=== PATIENT | male | born 1995 | race African-American/Black ===

== ENCOUNTER 2023-01-30 23:32 | Inpatient (IN) | payer BC ==
[2023-01-30] MEDS ORDERED: NALOXONE 0.4 MG/ML 1 ML VIAL IV PRN (23:46)
--- NOTE | 2023-01-30 23:46 | ED ---
General Adult HPI - General Chief complaint: Chest Pain Stated complaint: Stemi Time Seen by Provider: 01/30/23 23:36 Source: patient, EMS Mode of arrival: EMS Limitations: no limitations - History of Present Illness Initial comments: Dictation was produced using [employer] dictation software. please excuse any grammatical, word or spelling errors. Chief Complaint: 27-year-old male presents to the emergency department via transfer from [facility] for ST segment elevation MT History of Present Illness: 27-year-old male past medical history hypertension diabetes presents via EMS as a transfer from [facility] for ST segment elevation MT patient's been having chest pain. Patient has extensive family history. He's been having ongoing chest pain for last several hours. Patient states he has substernal pain. He allegedly has extensive family history of myocardial infarction The ROS documented in this emergency department record has been reviewed and confirmed by me. Those systems with pertinent positive or negative responses have been documented in the HPI. All other systems are other negative and/or noncontributory. - Related Data Allergies Allergy/AdvReac Type Severity Reaction Status Date / Time Unable to Assess Allergy Unverified 01/30/23 23:38 Review of Systems ROS Statement: Those systems with pertinent positive or pertinent negative responses have been documented in the HPI. ROS Other: All systems not noted in ROS Statement are negative. Past Medical History Past Medical History: Diabetes Mellitus Past Surgical History: No Surgical Hx Reported Smoking Status: Unknown if ever smoked Past Alcohol Use History: Unable to Obtain Past Drug Use History: Unable to Obtain General Exam - General Exam Comments Initial Comments: PHYSICAL EXAM: General Impression: Alert and oriented x3, not in acute distress HEENT: Normocephalic atraumatic, extra-ocular movements intact, pupils equal and reactive to light bilaterally, mucous membranes moist. Cardiovascular: Heart regular rate and rhythm Chest: Able to complete full sentences, no retractions, no tachypnea Abdomen: abdomen soft, non-tender, non-distended, no organomegaly Musculoskeletal: Pulses present and equal in all extremities, no peripheral edema Motor: no focal deficits noted Neurological: CN II-XII grossly intact, no focal motor or sensory deficits noted Skin: Intact with no visualized rashes Psych: Normal affect and mood Limitations: no limitations Medical Decision Making - Medical Decision Making Was pt. sent in by a medical professional or institution (, PA, WILLOW MACHINE TENDER, urgent care, hospital, or group home...) When possible be specific @ -No Did you speak to anyone other than the patient for history (EMS, parent, family, police, friend...)? What history was obtained from this source @ -Case discussed with Dr. Valdovinos at [facility] Did you review nursing and triage notes (agree or disagree)? Why? @ -I reviewed and agree with nursing and triage notes Were old charts reviewed (outside hosp., previous admission, EMS record, old EKG, old radiological studies, urgent care reports/EKG's, group home records)? Report findings @ -No old charts were reviewed Differential Diagnosis (chest pain, altered mental status, abdominal pain women, abdominal pain men, vaginal bleeding, musculoskeletal, weakness, fever, dyspnea, syncope, headache, dizziness, GI bleed, back pain, seizure, CVA, palpatations, mental health)? @ -Differential Chest Pain: Stable Angina, Unstable Angina, STEMI, NSTEMI Aortic Dissection, Pneumothorax, Musculoskeletal, Esophageal Spasm GERD, Cholecystitis, Pancreatitis, Zoster, this is not meant to be an all-inclusive list. EKG interpreted by me (3pts min.). @ -None done X-rays interpreted by me (1pt min.). @ -None done CT interpreted by me (1pt min.). @ -None done U/S interpreted by me (1pt. min.). @ -None done What testing was considered but not performed or refused? (CT, X-rays, U/S, labs)? Why? @ -None What meds were considered but not given or refused? Why? @ -None Did you discuss the management of the patient with other professionals (professionals i.e. , SHE, WILLOW MACHINE TENDER, lab, RT, psych nurse, high school social studies tutor, business intelligence analyst, teacher, ship officer, porter sample case)? Give summary @ -No Was smoking cessation discussed for >3mins.? @ -No Was critical care preformed (if so, how long)? @ -No Were there social determinants of health that impacted care today? How? (Homelessness, low income, unemployed, alcoholism, drug addiction, transportation, low edu. Level, literacy, decrease access to med. care, fdc, rehab)? @ -No Was there de-escalation of care discussed even if they declined (Discuss DNR or withdrawal of care, Hospice)? DNR status @ -No What co-morbidities impacted this encounter? (DM, HTN, Smoking, COPD, CAD, Cancer, CVA, ARF, Chemo, Hep., AIDS, mental health diagnosis, sleep apnea, morbid obesity)? @ -Diabetes, hypertension, extensive family history Was patient admitted / discharged? Hospital course, mention meds given and route, prescriptions, significant lab abnormalities, going to OR and other pertinent info. @ -27-year-old male presents via EMS for ST segment elevation MT. EKG was reviewed showing right bundle branch block with ST elevations. There were Q waves. Patient seen and found to be stable medical condition. Air Antisubmarine Officer was activated prior to patient's arrival. Case was discussed with railroad car repair supervisor who reviewed the EKG. Patient evaluated in ER and sent immediately to the Air Antisubmarine Officer for cardiac catheterization. Patient be admitted to [facility]. Undiagnosed new problem with uncertain prognosis? @ -No Drug Therapy requiring intensive monitoring for toxicity (Heparin, Nitro, Insulin, Cardizem)? @ -No Were any procedures done? @ -No Diagnosis/symptom? Acute, or Chronic, or Acute on Chronic? Uncomplicated (without systemic symptoms) or Complicated (systemic symptoms)? @ -STEMI Side effects of treatment? @ -No Exacerbation, Progression, or Severe Exacerbation? @ -No Poses a threat to life or bodily function? How? (Chest pain, USA, MT, pneumonia, PE, COPD, DKA, ARF, appy, cholecystitis, CVA, Diverticulitis, Homicidal, Suicidal, threat to staff... and all critical care pts) @ -yes Disposition Clinical Impression: ST elevation myocardial infarction (STEMI) Disposition: ADMITTED IP TO THIS HOSP Condition: Fair Referrals: None,Stated [Primary Care Provider] - 1-2 days Decision Time: 23:46
[2023-01-30] MEDS ORDERED: VERAPAMIL 2.5 MG/ML 2 ML AMP ONE (23:48)
[2023-01-30] MEDS ORDERED: HEPARIN SODIUM 1,000 UN/ML (10ML VL) ONE (23:48)
[2023-01-30] MEDS ORDERED: fentaNYL (PF) 50 MCG/ML 2 ML AMP ONE (23:48)
--- NOTE | 2023-01-30 23:53 | P.CRDCN ---
History of Present Illness Consult date: 01/30/23 History of present illness: History of Present Illness: The patient is a 27-year-old male was transferred from [facility] with an abnormal EKG consistent with STEMI. Patient has a history of diabetes, chronic tobacco use, marijuana use and a strong family history of premature CAD with prior episodes of hypertension, he has not been followed by a physician on a regular basis and presented with symptoms of chest discomfort that started yesterday and got better then worse again today. On the EKG at [facility] he had ST segment elevation anteriorly with right bundle branch block and QRS pattern. The patient denies any prior history of cardiac disease. He continues to have some chest discomfort. He has no significant dyspnea, dizziness or palpitations. He denies any PND, orthopnea or peripheral edema. Medications: Metformin Review of Systems: Respiratory: No history of asthma, bronchitis or recent cough. GI: No nausea or vomiting . No history of peptic ulcer disease. No recent GI bleed. : No hematuria or dysuria. Nervous System: No stroke or seizure. Physical Examination: 27-year-old male, alert and oriented no apparent distress ,Blood pressure 130/70, Heart rate 70 Head: Normocephalic. Eyes: Sclerae nonicteric. Neck: Good carotid upstroke, no bruit, no jugular venous distention. Lungs: Clear to auscultation. Heart: Regular rate and rhythm, S1-S2, no S3, no rub. No murmur. Abdomen: Soft nontender, positive bowel sounds no organomegaly. Extremities: No edema, intact distal pulses. Labs: Pending EKG: Sinus mechanism with evidence of anterior lateral wall myocardial infarction and QRS pattern anteriorly Impression: 1. Acute chest discomfort with EKG changes consistent with anterior wall myocardial infarction, pain started yesterday 2. History of diabetes 3. Strong family history of premature CAD 4. Chronic tobacco use 5. History of hypertension Plan: 1. Proceed with emergent cardiac catheterization, the risks and the complications were discussed with the patient 2. Obtain an echocardiogram with Doppler 3. Depending on his progress further recommendations will be made 4. Thank you for this consult we will follow with you Past Medical History Past Medical History: Diabetes Mellitus Past Surgical History: No Surgical Hx Reported Smoking Status: Unknown if ever smoked Past Alcohol Use History: Unable to Obtain Past Drug Use History: Unable to Obtain Medications and Allergies Allergies Allergy/AdvReac Type Severity Reaction Status Date / Time Unable to Assess Allergy Unverified 01/30/23 23:38 Physical Exam Vitals: Intake and Output 01/30/23 01/30/23 01/31/23 14:59 22:59 06:59 Other: Weight 79.379 kg Results Current Medications Generic Name Dose Route Start Last Admin Trade Name Freq PRN Reason Stop Dose Admin Naloxone HCl 0.2 mg 01/30/23 23:46 Naloxone 0.4 Mg/Ml 1 Ml Vial IV Q2M PRN Opioid Reversal Intake and Output 01/30/23 01/30/23 01/31/23 14:59 22:59 06:59 Other: Weight 79.379 kg Patient Weight 01/31/23 06:59 Weight 79.379 kg
[2023-01-30] MEDS ORDERED: fentaNYL (PF) 50 MCG/1 ML VIAL IVP ONE (23:57)
[2023-01-30] MEDS ORDERED: LIDOCAINE 1% INJ 10MG/ML (5 ML VIAL-PF) SQ ONE (23:58)
[2023-01-30] MEDS ORDERED: SODIUM CHLORIDE 0.9% 1,000 ML IV ONE (23:59)
[2023-01-31] MEDS ORDERED: VERAPAMIL SYRINGE (5 MG/10 ML) INTRAARTER ONE (00:02)
[2023-01-31] MEDS ORDERED: HEPARIN SODIUM 1,000 UN/ML (10ML VL) IV ONE (00:09)
[2023-01-31] MEDS ORDERED: PRASUGREL 10 MG TAB ONE (00:10)
[2023-01-31] MEDS ORDERED: PRASUGREL 10 MG TAB PO ONE (00:10)
[2023-01-31] MEDS ORDERED: IOPAMIDOL-370 100ML BTL INJ ONE ×2 (00:13→00:41)
[2023-01-31] MEDS ORDERED: NITROGLYCERIN 1000MCG/10ML SYRINGE INTRACORON ONE (00:39)
[2023-01-31] MEDS ORDERED: RX INFO: IV CONTRAST WAS GIVEN 1 EACH MISC MISCELLANE PRN (00:55)
[2023-01-31] MEDS ORDERED: NITROGLYCERIN SL TABS 0.4 MG TAB SUBLINGUAL PRN (01:00)
[2023-01-31] MEDS ORDERED: SODIUM CHLORIDE 0.9% 1,000 ML in EMPTY BAG 1 BAG IV SCH (01:00)
--- NOTE | 2023-01-31 01:05 | P.CARDCATH ---
Date of Procedure: 01/31/23 Description of Procedure: Cardiac Catheterization: The patient is a 27-year-old male with known history of diabetes, chronic tobacco use, strong family history of premature CAD who presented to [facility] with chest discomfort that started yesterday on and off and became worse today and had an EKG consistent with acute anterior wall STEMI. Recommendations were made regarding cardiac catheterization, the risks and the complications were discussed with the patient who is in full understanding and agreement. Procedure Description: Patient was brought to laborer car barn in fasting semi-sedated state after receiving Fentanyl and Benadryl achieiving moderate conscious sedated state. Using Xylocaine Anesthesia and Seldinger technique, a 6-Portuguese sheath was introduced in the right radial artery . Subsequently, selective coronary angiography was performed using a 6-Portuguese EBU 3.75 guiding catheter. Multiple views of the coronary artery including hemiaxial views were obtained. The EBU catheter was used to cross the aortic valve and LVEDP was calculated. PCI: After cannulating the left main a 0.014 BMW J-wire with a fine cross catheter were advanced into system and a total occlusion of the proximal LAD was crossed, the wire was positioned distally, after removing a fine cross catheter a 2.5 x 12 mm Treck balloon was advanced and 2 inflations were done at a maximum of 8 chip. After removing the balloon a L4 [employer] eye intravascular ultrasound catheter was introduced and imaging were obtained. After removing the catheter a 4.5 x 23 mm Xience echo point stent was deployed at 14 chip, after removing the balloon repeat intravascular ultrasound imaging was performed and subsequently a 5.0 x 15 mm NC Treck was advanced and 2 inflations at 10 chip were done. After removing the balloon and the wire images were obtained and revealed stable successful stenting. Following that, catheter and sheath were removed. Hemostasis was obtained with deployment of TR band . There was no immediate complication. Patient was returned to room in stable condition. Of note, the patient received a total of 6000 units of intravenous heparin as well as intra- arterial verapamil. He received an oral loading dose of Effient, his ACT was followed. At the end of the procedure his chest discomfort improved. Findings: Left main: This is a large size vessel, bifurcating into left circumflex and LAD, left main has no high-grade stenosis LAD: This vessel is totally occluded proximally with no antegrade flow Left circumflex: This is a large nondominant vessel giving rise to a large obtuse marginal branch that has no evidence of stenosis RCA: This is a large dominant vessel, bifurcating into PDA and PLV, the RCA has no obstructive disease Left Ventriculogram: Not performed Hemodynamics: There was no gradient across the aortic valve, LVEDP was 30-32 mmHg Conclusion: 1. Acutely occluded proximal LAD 2. No obstructive disease in the left circumflex and RCA 3. Successful stenting of the proximal LAD with reduction of stenosis from 100% to 0% with intravascular ultrasound imaging 4. Elevated LVEDP Recommendations: The patient will continue on aspirin and Effient for 1 year with no interruption with aggressive medical therapy. The findings and the recommendations were discussed with the patient and the family and they were in full understanding and agreement. Duration of sedation is 47 minutes.
[2023-01-31 01:07] LABS: Glucose,Whole Blood 419 mg/dL (70-110)
[2023-01-31] MEDS ORDERED: ZOLPIDEM 5 MG TAB PO PRN (01:30)
[2023-01-31] MEDS: METOPROLOL TARTRATE 25 MG TAB PO SCH ×3 (01:33→20:30)
[2023-01-31] MEDS ORDERED: ATROPINE SULFATE 0.1 MG/ML 10ML SYRINGE IV PRN (02:00)
--- NOTE | 2023-01-31 03:46 | P.HPIM ---
History of Present Illness H&P Date: 01/31/23 The patient is a 27-year-old male with a PMH of type II DM and tobacco use who was transferred from [facility] where the patient had presented earlier today with complaints of chest pain. The patient reports that he had been experiencing intermittent substernal chest discomfort along with shortness of breath over the past 36 hours. He reports significant family history of heart disease with his father and mother both suffering MIs at young ages. The patient was noted to have STEMI on EKG and was immediately taken to the dock or pier laborer Where an acutely occluded proximal LAD was stented. The patient was seen postoperatively in the medical ICU. He reported no further chest discomfort and had no active complaints. Laboratory evaluation from her district was not available for review as it had not been sent with the patient. Request was made to the facility for further documentation. Only the CBC was available which revealed WBC count 11.19, hemoglobin 15.7 and platelet count 227. ED documentation reviewed and case discussed with ED provider. Review of systems: Pertinent positives and negatives as discussed in HPI, a complete review of systems was performed and all other systems are negative. Physical examination: Vital signs reviewed General: non toxic, no distress, appears at stated age, obese Derm: no unusual rashes/lesions, warm Head: atraumatic, normocephalic, symmetric Eyes: EOMI, no lid lag, anicteric sclera, pupils equal round reactive to light ENT: Nose and ears atraumatic Neck: No cervical lymphadenopathy, trachea midline, supple Mouth: no lip lesion, mucus membranes moist Cardiovascular: S1S2 reg, no murmur, positive dorsalis pedis pulse bilateral, no edema Lungs: CTA bilateral, no rhonchi, no rales, no accessory muscle use Abdominal: soft, nontender to palpation, no guarding Ext: muscle strength 5 out of 5 in all 4 extremities grossly, no gross muscle atrophy, no contractures, Neuro: CN II-XI grossly intact, no gross focal neuro deficits Psych: Alert, oriented, appropriate affect Assessment: Acute STEMI status post stent to proximal LAD Chronic conditions: Type 2 DM Imaging: None available Data Review: CBC was available which revealed WBC count 11.19, hemoglobin 15.7 and platelet count 227. Plan: Cardiology recommendations appreciated Patient on aspirin and Effient Continue with MEET inhibitor lisinopril and Aldactone Cardiac monitoring Follow-up hemoglobin A1c Insulin sliding scale and blood glucose monitoring DVT prophylaxis: heparin subq The patient is admitted with an anticipated greater than 2 midnight stay for evaluation of STEMI CODE STATUS: Full Code Discussed with: Patient Anticipated discharge place: Home Past Medical History Past Medical History: Chest Pain / Angina, Diabetes Mellitus, Hypertension History of Any Multi-Drug Resistant Organisms: None Reported Past Surgical History: Heart Catheterization With Stent Additional Past Surgical History / Comment(s): Stent to LAD 01/31/23 Past Anesthesia/Blood Transfusion Reactions: No Reported Reaction Date of Last Stent Placement:: 01/31/23 Smoking Status: Current every day smoker Past Alcohol Use History: Unable to Obtain Past Drug Use History: Unable to Obtain - Past Family History Father Family Medical History: Coronary Artery Disease (CAD) Medications and Allergies Allergies Allergy/AdvReac Type Severity Reaction Status Date / Time Penicillins Allergy Unknown Verified 01/30/23 23:50 Childhood Physical Exam Vitals: Vital Signs Temp Pulse Resp BP BP Pulse Ox 01/31/23 03:15 94 24 103/81 93 L 01/31/23 03:00 96 18 106/81 93 L 01/31/23 02:45 96 21 93 L 01/31/23 02:30 92 22 92 L 01/31/23 02:15 89 22 110/83 91 L 01/31/23 02:00 90 22 01/31/23 01:45 91 13 122/93 94 L 01/31/23 01:40 103 H 25 H 122/93 93 L 01/31/23 01:30 95 13 118/83 92 L 01/31/23 01:25 98.8 F 122/93 01/31/23 01:20 99 8 L 92 L 01/31/23 01:10 94 L 01/31/23 01:08 31 H Intake and Output 01/30/23 01/30/23 01/31/23 14:59 22:59 06:59 Intake Total 975 Output Total 800 Balance 175 Intake: IV 975 Sodium Chloride 0.9% 1, 225 000 ml In Empty Bag 1 bag @ 1 ML/KG/HR 79.379 mls/ hr IV .[id number] [facility] Rx#: [id number] Output: Urine 800 Other: Weight 88.1 kg Results Labs: Abnormal Lab Results - Last 24 Hours (Table) 01/31/23 Range/Units 01:05 POC Glucose (mg/dL) 419 H (70-110) mg/dL
[2023-01-31] MEDS ORDERED: MAG HYDROX/AL HYDROX/SIMETH 30 ML CUP PO PRN (04:00)
[2023-01-31 07:24] LABS: Glucose,Whole Blood 345 mg/dL (70-110)
[2023-01-31] MEDS: INSULIN ASPART (NovoLOG) 100 UNIT/ML VIAL SQ SCH ×4 (07:42→20:25)
--- NOTE | 2023-01-31 08:20 | P.PN ---
Subjective Progress Note Date: 01/31/23 Principal diagnosis: Acute coronary syndrome The patient is a 27-year-old gentleman was admitted to the hospital with acute coronary syndrome consistent with acute anterior ST elevation myocardial infarction and he underwent an emergent heart catheterization and found to have occluded LAD which was stented. 01/31/2023 The patient was seen and evaluated this morning. Currently he is chest pain- free and wheezing with an increased stable. I did watch the echo at bedside and that showed an EF around 20-25% with dilated LV and anterior hypokinesia. Currently he is on dual antiplatelet therapy as well as high intensity statin and anti-ischemic medications. From the cardiac standpoint of view, we'll continue the current medical regimen and continue following up with the patient The examination is remarkable for regular rhythm with a clear breathing sounds bilaterally and no lower extremity edema Assessment Acute anterior ST elevation myocardial infarction Severe cardiomyopathy History of smoking Significant family history of cardiovascular disease Plan Continue the current medical regimen Continue dual antiplatelet therapy and high intensity statin Monitor the patient for additional 24-48 hours Follow-up with the patient Objective - Vital Signs Vital signs: Vital Signs Temp 98.5 F 01/31/23 04:00 Pulse 100 01/31/23 07:00 Resp 26 H 01/31/23 07:00 BP 101/79 01/31/23 07:00 Pulse Ox 95 01/31/23 07:00 FiO2 Intake & Output 01/30/23 01/31/23 01/31/23 18:59 06:59 18:59 Intake Total 1200 75 Output Total 800 950 Balance 400 -875 Weight 88.1 kg Intake: IV 1200 75 Sodium Chloride 0.9% 1, 450 75 000 ml In Empty Bag 1 bag @ 1 ML/KG/HR 79.379 mls/ hr IV .[id number] [facility] Rx#: [id number] Output: Urine 800 950 Other: Voiding Method Urinal - Labs Labs: Abnormal Lab Results - Last 24 Hours (Table) 01/31/23 01/31/23 01/31/23 Range/Units 01:05 01:46 04:13 POC Glucose (mg/dL) 419 H (70-110) mg/dL Troponin I 111.000 H* 140.000 H* (0.000-0.034) ng/mL 01/31/23 Range/Units 07:22 POC Glucose (mg/dL) 345 H (70-110) mg/dL Troponin I (0.000-0.034) ng/mL
[2023-01-31] MEDS: SPIRONOLACTONE 25 MG TAB PO SCH (09:05)
[2023-01-31] MEDS: HEPARIN SODIUM,PORCINE/PF 5,000 UNIT/0.5 ML SYRINGE SQ SCH ×3 (09:05→23:14)
[2023-01-31] MEDS: ASPIRIN 81 MG PO SCH (09:05)
[2023-01-31 10:10] LABS: Basophils % (A) 0 %; Eosinophils # (A) 0.1 k/uL (0-0.7); Eosinophils % (A) 1 %; Lymphocytes # (A) 2.2 k/uL (1.0-4.8); Lymphocytes % (A) 16 %; MCH 29.3 pg (25.0-35.0); MCHC 33.4 g/dL (31.0-37.0); MCV 87.9 fL (80.0-100.0); Monocytes # (A) 0.8 k/uL (0-1.0); Monocytes % (A) 6 %; Neutrophils # (A) 10.8 k/uL (1.3-7.7); Neutrophils % (A) 77 %; Platelet Count 207 k/uL (150-450); RBC 4.78 m/uL (4.30-5.90)
[2023-01-31 10:27] LABS: African American GFR (CKD) >90 (>60 ml/min/1.73 sqM); Anion Gap 4 mmol/L; Blood Urea Nitrogen 12 mg/dL (9-20); Calcium 8.6 mg/dL (8.4-10.2); Carbon Dioxide 27 mmol/L (22-30); Chloride 104 mmol/L (98-107); Glucose 268 mg/dL (74-99); Magnesium 1.9 mg/dL (1.6-2.3); Non-African American GFR(CKD) >90 (>60 ml/min/1.73 sqM); Potassium 3.9 mmol/L (3.5-5.1); Sodium 135 mmol/L (137-145)
--- NOTE | 2023-01-31 10:56 | CA ---
Transthoracic Echo Report Name: Gordy Wei Age: 27 Gender: M : 1995 Exam Date: 01/31/2023 08:03 Exam Location: [place] [facility] Ht (in): 65 Wt (lb): 175 Ordering Physician: Jacqueline Borden MD ([id number]) Attending/Referring Phys: Senior Java Web Application Developer Lis Bah RDCS Procedure CPT: Indications: IN Cardiac Hx: stent Technical Quality: Excellent Contrast 1: Total Dose (mL): Contrast 2: Total Dose (mL): MEASUREMENTS (Male / Female) Normal Values 2D ECHO LV Diastolic Diameter PLAX 4.6 cm 4.2 - 5.9 / 3.9 - 5.3 cm LV Systolic Diameter PLAX 3.8 cm IVS Diastolic Thickness 1.0 cm 0.6 - 1.0 / 0.6 - 0.9 cm LVPW Diastolic Thickness 1.1 cm 0.6 - 1.0 / 0.6 - 0.9 cm LV Relative Wall Thickness 0.5 RV Internal Dim ED PLAX 2.8 cm LA Systolic Diameter LX 3.4 cm 3.0 - 4.0 / 2.7 - 3.8 cm LV Diastolic Volume MOD BP 92.7 cm??? 67 - 155 / 56 - 104 cm??? LV Systolic Volume MOD BP 67.6 cm??? - 58 / 19 - 49 cm??? LV Ejection Fraction MOD BP 27.1 % >= 55 % LV Cardiac Index MOD BP 1093.3 cm???/min???m??? LV Diastolic Volume MOD 4C 77.4 cm??? LV Systolic Volume MOD 4C 64.7 cm??? LV Ejection Fraction MOD 4C 16.4 % LV Cardiac Index MOD 4C 551.9 cm???/min???m??? LV Diastolic Length 4C 8.0 cm LV Systolic Length 4C 8.2 cm LV Diastolic Volume MOD 2C 106.0 cm??? LV Systolic Volume MOD 2C 71.1 cm??? LV Ejection Fraction MOD 2C 32.9 % LV Cardiac Index MOD 2C 1516.9 cm???/min???m??? LV Diastolic Length 2C 8.6 cm LV Systolic Length 2C 8.3 cm LA Volume 49.7 cm??? 18 - 58 / 22 - 52 cm??? M-MODE Aortic Root Diameter MM 3.0 cm MV E Point Septal Separation 1.0 cm AV Cusp Separation MM 2.0 cm DOPPLER AV Peak Velocity 90.0 cm/s AV Peak Gradient 3.2 mmHg MV Area PHT 13.2 cm??? Mitral E Point Velocity 79.7 cm/s Mitral A Point Velocity 89.5 cm/s Mitral E to A Ratio 0.9 MV Deceleration Time 57.6 ms MV E' Velocity 6.9 cm/s Mitral E to MV E' Ratio 11.6 TR Peak Velocity 237.6 cm/s TR Peak Gradient 22.6 mmHg Right Ventricular Systolic Press 36.5 mmHg FINDINGS Left Ventricle Left ventricular ejection fraction is estimated at 20-25 %. Left ventricular cavity size normal. Global left ventricular hypokinesis. Mildly increased left ventricular systolic volume. Severely decreased left ventricular ejection fraction. Right Ventricle Normal right ventricular size. Mild pulmonary hypertension. Right Atrium Normal right atrial size. Left Atrium Normal left atrial size. Mitral Valve Structurally normal mitral valve. Trace to mild mitral regurgitation. Aortic Valve Trileaflet aortic valve. No aortic valve stenosis or regurgitation. Tricuspid Valve Structurally normal tricuspid valve. Mild tricuspid regurgitation. Pulmonic Valve Structurally normal pulmonic valve. No pulmonic regurgitation. Pericardium Normal pericardium. No pericardial effusion. Aorta Normal size aortic root and proximal ascending aorta. CONCLUSIONS Severe LV dysfunction Previewed by: Dr. Devaughn Barr MD (Electronically Signed) Final Date: 31 January 2023 10:55
[2023-01-31 10:57] VITALS: BMI 32.3
[2023-01-31 11:46] LABS: Chol/HDL Ratio 5.25 Ratio; LDL Cholesterol,Calculated 108.1 mg/dL (0.0-131.0)
[2023-01-31] MEDS: DAPAGLIFLOZIN PROPANEDIOL 5 MG TABLET PO SCH (12:17)
[2023-01-31 12:18] LABS: Glucose,Whole Blood 232 mg/dL (70-110)
[2023-01-31] MEDS ORDERED: ACETAMINOPHEN TAB 325 MG TAB PO PRN (16:14)
[2023-01-31 16:31] LABS: Glucose,Whole Blood 145 mg/dL (70-110)
[2023-01-31 20:20] LABS: Glucose,Whole Blood 215 mg/dL (70-110)
[2023-01-31] MEDS: ATORVASTATIN 80 MG TAB PO SCH (20:25)
[2023-02-01 04:54] LABS: African American GFR (CKD) >90 (>60 ml/min/1.73 sqM); Anion Gap 6 mmol/L; Blood Urea Nitrogen 9 mg/dL (9-20); Calcium 8.4 mg/dL (8.4-10.2); Carbon Dioxide 24 mmol/L (22-30); Chloride 101 mmol/L (98-107); Glucose 189 mg/dL (74-99); Non-African American GFR(CKD) >90 (>60 ml/min/1.73 sqM); Potassium 3.5 mmol/L (3.5-5.1); Sodium 131 mmol/L (137-145)
[2023-02-01 06:35] LABS: Glucose,Whole Blood 190 mg/dL (70-110)
[2023-02-01] MEDS: INSULIN ASPART (NovoLOG) 100 UNIT/ML VIAL SQ SCH ×4 (06:47→20:38)
[2023-02-01] MEDS ORDERED: FUROSEMIDE 10 MG/ML 2 ML VIAL IV ONE (08:26)
--- NOTE | 2023-02-01 08:28 | P.PN ---
Subjective Progress Note Date: 02/01/23 Principal diagnosis: Acute coronary syndrome The patient is a 27-year-old gentleman was admitted to the hospital with acute coronary syndrome consistent with acute anterior ST elevation myocardial infarction and he underwent an emergent heart catheterization and found to have occluded LAD which was stented. 01/31/2023 The patient was seen and evaluated this morning. Currently he is chest pain- free and wheezing with an increased stable. I did watch the echo at bedside and that showed an EF around 20-25% with dilated LV and anterior hypokinesia. Currently he is on dual antiplatelet therapy as well as high intensity statin and anti-ischemic medications. From the cardiac standpoint of view, we'll continue the current medical regimen and continue following up with the patient 02/01/2023 The patient was seen and evaluated this morning. He is stable beside marginally low blood pressure. He was short of breath with ambulation with some drop in the oxygen level with ambulation as well. I'm going to give the patient 20 mg of Lasix IV. We will try to wean him from the oxygen. He is on dual antiplatelet therapy along with high intensity statin along with beta mari and small dose of MEET inhibitor as well. From the cardiac standpoint of view, I would continue monitoring the patient in the intensive care unit for additional 24 hours. The echo showed impaired LV function with EF around 25-30%. The examination is remarkable for regular rhythm with a clear breathing sounds bilaterally and no lower extremity edema Assessment Acute anterior ST elevation myocardial infarction Severe cardiomyopathy History of smoking Significant family history of cardiovascular disease Sinus tachycardia Plan Give the patient one dose of Lasix IV of 20 mg Continue the current medical regimen Continue dual antiplatelet therapy and high intensity statin Monitor the patient for additional 24-48 hours Follow-up with the patient Objective - Vital Signs Vital signs: Vital Signs Temp 98.4 F 02/01/23 04:00 Pulse 112 H 02/01/23 07:00 Resp 26 H 02/01/23 07:00 BP 94/69 02/01/23 07:00 Pulse Ox 92 L 02/01/23 07:00 FiO2 Intake & Output 01/31/23 02/01/23 02/01/23 18:59 06:59 18:59 Intake Total 1125 Output Total 950 700 0 Balance 175 -700 0 Weight 88.1 kg 86.8 kg Intake: IV 525 Sodium Chloride 0.9% 1, 525 000 ml In Empty Bag 1 bag @ 1 ML/KG/HR 79.379 mls/ hr IV .[id number] [facility] Rx#: [id number] Oral 600 Output: Urine 950 700 0 Other: Voiding Method Urinal Urinal # Voids 1 - Labs CBC & Chem 7: 01/31/23 09:50 02/01/23 04:25 Labs: Abnormal Lab Results - Last 24 Hours (Table) 01/31/23 01/31/23 01/31/23 Range/Units 04:13 04:13 09:50 WBC 14.0 H (3.8-10.6) k/uL Neutrophils # 10.8 H (1.3-7.7) k/uL Sodium (137-145) mmol/L Creatinine (0.66-1.25) mg/dL Glucose (74-99) mg/dL POC Glucose (mg/dL) (70-110) mg/dL Hemoglobin A1c 12.3 H (<=6.0) % Triglycerides 273.00 H (0.00-149.00) mg/dL Cholesterol 201.00 H (0.00-200.00) mg/dL VLDL Cholesterol, Calc 54.60 H (5.00-40.00) mg/dL HDL Cholesterol 38.30 L (40.00-60.00) mg/dL 01/31/23 01/31/23 01/31/23 Range/Units 09:50 12:07 16:30 WBC (3.8-10.6) k/uL Neutrophils # (1.3-7.7) k/uL Sodium 135 L (137-145) mmol/L Creatinine 0.64 L (0.66-1.25) mg/dL Glucose 268 H (74-99) mg/dL POC Glucose (mg/dL) 232 H 145 H (70-110) mg/dL Hemoglobin A1c (<=6.0) % Triglycerides (0.00-149.00) mg/dL Cholesterol (0.00-200.00) mg/dL VLDL Cholesterol, Calc (5.00-40.00) mg/dL HDL Cholesterol (40.00-60.00) mg/dL 01/31/23 02/01/23 02/01/23 Range/Units 20:18 04:25 06:33 WBC (3.8-10.6) k/uL Neutrophils # (1.3-7.7) k/uL Sodium 131 L (137-145) mmol/L Creatinine 0.55 L (0.66-1.25) mg/dL Glucose 189 H (74-99) mg/dL POC Glucose (mg/dL) 215 H 190 H (70-110) mg/dL Hemoglobin A1c (<=6.0) % Triglycerides (0.00-149.00) mg/dL Cholesterol (0.00-200.00) mg/dL VLDL Cholesterol, Calc (5.00-40.00) mg/dL HDL Cholesterol (40.00-60.00) mg/dL
[2023-02-01] MEDS: METOPROLOL TARTRATE 25 MG TAB PO SCH ×2 (08:36→20:57)
[2023-02-01] MEDS: ASPIRIN 81 MG PO SCH (08:38)
[2023-02-01] MEDS: PRASUGREL 10 MG TAB PO SCH (08:39)
[2023-02-01] MEDS: SPIRONOLACTONE 25 MG TAB PO SCH (08:40)
[2023-02-01] MEDS: DAPAGLIFLOZIN PROPANEDIOL 5 MG TABLET PO SCH (08:41)
[2023-02-01] MEDS: HEPARIN SODIUM,PORCINE/PF 5,000 UNIT/0.5 ML SYRINGE SQ SCH ×3 (08:41→23:29)
--- NOTE | 2023-02-01 11:28 | P.PN ---
Subjective Progress Note Date: 02/01/23 Hospital Course: 27-year-old male with a PMH of type II DM and tobacco use who was transferred from [facility] where the patient had presented earlier today with complaints of chest pain. The patient was noted to have STEMI on EKG and was immediately taken to the film laboratory technician Where an acutely occluded proximal LAD was stented. The patient was seen postoperatively in the medical ICU. Echocardiogram shows LVEF 20-25%. A1c is greater than 12. Subjective: Patient seen and examined at bedside. No acute events overnight. Pertinent positives and negatives as discussed above, a complete review of systems was performed and all other systems are negative. Vitals Signs Reviewed. General: nontoxic, no distress, appears at stated age Derm: warm, dry Head: atraumatic, normocephalic, symmetric Eyes: EOMI, no lid lag, anicteric sclera Mouth: no lip lesion, mucus membranes moist Cardiovascular: S1S2 reg, no murmur Lungs: CTA bilateral, no rhonchi, no rales , no accessory muscle use Abdominal: soft, nontender to palpation, no guarding, no appreciable organomegaly Ext: no gross muscle atrophy, no edema, no contractures Neuro: CN II-XI grossly intact, no focal neuro deficits Psych: Alert, oriented, appropriate affect Data Reviewed Today: Pertinent Labs: Sodium 131, creatinine 0.55, blood sugars range between 145 to 2:15 Imaging: EKG independently interpreted from this morning, shows significant Q waves in anterior leads, as well as right bundle branch block Assessment and Plan: Acute STEMI status post stent to proximal LAD Type 2 diabetes, uncontrolled, A1c 12.3 Family history of premature coronary artery disease Nicotine dependence Dyslipidemia -Continue aspirin, effient, and statin -Also started on metoprolol tartrate, switched to metoprolol succinate at the time of discharge, also on Aldactone and lisinopril -Sliding scale insulin, also started on farxiga -Patient may benefit from insulin therapy at the time of discharge -Patient may also benefit from a LifeVest -Cardiology note reviewed, 20 mg IV Lasix given today DVT ppx: Subcu heparin Code status: Full code Anticipated discharge place: Home Anticipated discharge time: Pending clinical course Objective - Vital Signs Vital signs: Vital Signs Temp 98.6 F 02/01/23 08:00 Pulse 90 02/01/23 11:00 Resp 28 H 02/01/23 11:00 BP 102/75 02/01/23 11:00 Pulse Ox 96 02/01/23 11:00 FiO2 Intake & Output 01/31/23 02/01/23 02/01/23 18:59 06:59 18:59 Intake Total 1125 550 Output Total 306 718 6707 Balance 175 -700 -550 Weight 88.1 kg 86.8 kg Intake: IV 525 10 Invasive Line 1 10 Sodium Chloride 0.9% 1, 525 000 ml In Empty Bag 1 bag @ 1 ML/KG/HR 79.379 mls/ hr IV .[id number] [facility] Rx#: [id number] Oral 600 540 Output: Urine 130 085 0688 Other: Voiding Method Urinal Urinal Urinal # Voids 1 - Labs CBC & Chem 7: 01/31/23 09:50 02/01/23 04:25 Labs: Abnormal Lab Results - Last 24 Hours (Table) 01/31/23 01/31/23 01/31/23 Range/Units 04:13 12:07 16:30 Sodium (137-145) mmol/L Creatinine (0.66-1.25) mg/dL Glucose (74-99) mg/dL POC Glucose (mg/dL) 232 H 145 H (70-110) mg/dL Triglycerides 273.00 H (0.00-149.00) mg/dL Cholesterol 201.00 H (0.00-200.00) mg/dL VLDL Cholesterol, Calc 54.60 H (5.00-40.00) mg/dL HDL Cholesterol 38.30 L (40.00-60.00) mg/dL 01/31/23 02/01/23 02/01/23 Range/Units 20:18 04:25 06:33 Sodium 131 L (137-145) mmol/L Creatinine 0.55 L (0.66-1.25) mg/dL Glucose 189 H (74-99) mg/dL POC Glucose (mg/dL) 215 H 190 H (70-110) mg/dL Triglycerides (0.00-149.00) mg/dL Cholesterol (0.00-200.00) mg/dL VLDL Cholesterol, Calc (5.00-40.00) mg/dL HDL Cholesterol (40.00-60.00) mg/dL
[2023-02-01 11:29] LABS: Glucose,Whole Blood 179 mg/dL (70-110)
[2023-02-01] MEDS ORDERED: INSULIN DETEMIR (LEVEMIR) 100 UNIT/ML SYR SQ ONE (11:29)
[2023-02-01 17:21] LABS: Glucose,Whole Blood 336 mg/dL (70-110)
[2023-02-01 20:26] LABS: Glucose,Whole Blood 112 mg/dL (70-110)
[2023-02-01] MEDS: ATORVASTATIN 80 MG TAB PO SCH (20:57)
[2023-02-02 06:14] LABS: Basophils % (A) 0 %; Eosinophils # (A) 0.1 k/uL (0-0.7); Eosinophils % (A) 1 %; HCT 42.8 % (39.0-53.0); HGB 14.4 gm/dL (13.0-17.5); Lymphocytes # (A) 2.6 k/uL (1.0-4.8); Lymphocytes % (A) 23 %; MCH 29.4 pg (25.0-35.0); MCHC 33.5 g/dL (31.0-37.0); MCV 87.7 fL (80.0-100.0); Mean Platelet Volume 7.8; Monocytes # (A) 0.7 k/uL (0-1.0); Monocytes % (A) 7 %; Neutrophils # (A) 7.6 k/uL (1.3-7.7); Neutrophils % (A) 68 %; Platelet Count 201 k/uL (150-450); RBC 4.88 m/uL (4.30-5.90); RDW 12.8 % (11.5-15.5); WBC 11.1 k/uL (3.8-10.6)
[2023-02-02 06:23] LABS: African American GFR (CKD) >90 (>60 ml/min/1.73 sqM); Anion Gap 6 mmol/L; Blood Urea Nitrogen 16 mg/dL (9-20); Calcium 8.6 mg/dL (8.4-10.2); Carbon Dioxide 24 mmol/L (22-30); Chloride 101 mmol/L (98-107); Glucose 151 mg/dL (74-99); Non-African American GFR(CKD) >90 (>60 ml/min/1.73 sqM); Potassium 3.7 mmol/L (3.5-5.1); Sodium 131 mmol/L (137-145)
[2023-02-02 06:52] LABS: Glucose,Whole Blood 142 mg/dL (70-110)
[2023-02-02] MEDS: INSULIN ASPART (NovoLOG) 100 UNIT/ML VIAL SQ SCH ×4 (06:57→20:17)
[2023-02-02] MEDS: INSULIN DETEMIR (LEVEMIR) 100 UNIT/ML SYR SQ SCH (06:59)
[2023-02-02] MEDS: ASPIRIN 81 MG PO SCH (08:33)
[2023-02-02] MEDS: SPIRONOLACTONE 25 MG TAB PO SCH (08:33)
[2023-02-02] MEDS: DAPAGLIFLOZIN PROPANEDIOL 5 MG TABLET PO SCH (08:33)
[2023-02-02] MEDS: HEPARIN SODIUM,PORCINE/PF 5,000 UNIT/0.5 ML SYRINGE SQ SCH ×2 (08:33→16:23)
[2023-02-02] MEDS: METOPROLOL TARTRATE 25 MG TAB PO SCH ×2 (08:33→20:17)
[2023-02-02] MEDS: PRASUGREL 10 MG TAB PO SCH (08:33)
--- NOTE | 2023-02-02 08:44 | P.PN ---
Subjective Principal diagnosis: Acute coronary syndrome The patient is a 27-year-old gentleman was admitted to the hospital with acute coronary syndrome consistent with acute anterior ST elevation myocardial infarction and he underwent an emergent heart catheterization and found to have occluded LAD which was stented. 01/31/2023 The patient was seen and evaluated this morning. Currently he is chest pain- free and wheezing with an increased stable. I did watch the echo at bedside and that showed an EF around 20-25% with dilated LV and anterior hypokinesia. Currently he is on dual antiplatelet therapy as well as high intensity statin a nd anti-ischemic medications. From the cardiac standpoint of view, we'll continue the current medical regimen and continue following up with the patient 02/01/2023 The patient was seen and evaluated this morning. He is stable beside marginally low blood pressure. He was short of breath with ambulation with some drop in the oxygen level with ambulation as well. I'm going to give the patient 20 mg of Lasix IV. We will try to wean him from the oxygen. He is on dual antiplatelet therapy along with high intensity statin along with beta mari and small dose of MEET inhibitor as well. From the cardiac standpoint of view, I would continue monitoring the patient in the intensive care unit for additional 24 hours. The echo showed impaired LV function with EF around 25-30%. February [id number] The patient was seen and evaluated this morning. He is asymptomatic. Currently his oxygen saturation has been within normal limits on room air. Hemodynamically he is a slightly tachycardic was marginally low blood pressure. I'm going to decrease dose of Aldactone to 12.5 mg by mouth daily. Continue the current medical regimen including the current dose of lisinopril which is 2.5 mg daily and metoprolol tartrate 25 mg by mouth twice a day and continue dual antiplatelet therapy and high intensity statin. I would suggest for the patient to be discharged home on LifeVest The examination is remarkable for regular rhythm with a clear breathing sounds bilaterally and no lower extremity edema Assessment Acute anterior ST elevation myocardial infarction Severe cardiomyopathy History of smoking Significant family history of cardiovascular disease Sinus tachycardia Marginally low blood pressure Plan Continue the current medical regimen Decrease dose of Aldactone in the light of low blood pressure Continue dual antiplatelet therapy and high intensity statin Continue the current dose of beta mari and MEET inhibitor Consider discharge in the next 24 hours on LifeVest if he remains stable Objective - Vital Signs Vital signs: Vital Signs Temp 98.5 F 02/02/23 08:00 Pulse 112 H 02/02/23 08:30 Resp 28 H 02/02/23 08:30 BP 90/63 02/02/23 08:30 Pulse Ox 92 L 02/02/23 08:00 FiO2 Intake & Output 02/01/23 02/02/23 02/02/23 18:59 06:59 18:59 Intake Total 1410 Output Total 2300 500 Balance -890 -500 Weight 85.8 kg Intake: IV 30 Invasive Line 1 30 Oral 1380 Output: Urine 2300 500 Other: Voiding Method Urinal Urinal - Labs CBC & Chem 7: 02/02/23 05:41 02/02/23 05:41 Labs: Abnormal Lab Results - Last 24 Hours (Table) 02/01/23 02/01/23 02/01/23 Range/Units 11:27 17:20 20:25 WBC (3.8-10.6) k/uL Sodium (137-145) mmol/L Creatinine (0.66-1.25) mg/dL Glucose (74-99) mg/dL POC Glucose (mg/dL) 179 H 336 H 112 H (70-110) mg/dL 02/02/23 02/02/23 02/02/23 Range/Units 05:41 05:41 06:50 WBC 11.1 H (3.8-10.6) k/uL Sodium 131 L (137-145) mmol/L Creatinine 0.57 L (0.66-1.25) mg/dL Glucose 151 H (74-99) mg/dL POC Glucose (mg/dL) 142 H (70-110) mg/dL
--- NOTE | 2023-02-02 11:06 | P.PN ---
Subjective Progress Note Date: 02/02/23 Hospital Course: 27-year-old male with a PMH of type II DM and tobacco use who was transferred f [facility] where the patient had presented with complaints of chest pain. The patient was noted to have STEMI on EKG and was immediately taken to the slab worker, am acutely occluded proximal LAD was stented. Patient remains in the medical ICU. Echocardiogram shows LVEF 20-25%. A1c is greater than 12. Likely discharge home tomorrow. Subjective: Patient seen and examined at bedside. No acute events overnight. Pertinent positives and negatives as discussed above, a complete review of systems was performed and all other systems are negative. Vitals Signs Reviewed. General: nontoxic, no distress, appears at stated age Derm: warm, dry Head: atraumatic, normocephalic, symmetric Eyes: EOMI, no lid lag, anicteric sclera Mouth: no lip lesion, mucus membranes moist Cardiovascular: S1S2 reg, no murmur Lungs: CTA bilateral, no rhonchi, no rales , no accessory muscle use Abdominal: soft, nontender to palpation, no guarding, no appreciable organomegaly Ext: no gross muscle atrophy, no edema, no contractures Neuro: CN II-XI grossly intact, no focal neuro deficits Psych: Alert, oriented, appropriate affect Data Reviewed Today: Pertinent Labs: WBC 11.1, sodium 131, creatinine 0.57, blood sugars range between 112-151 Imaging: No new imaging today Assessment and Plan: Acute STEMI status post stent to proximal LAD Type 2 diabetes, uncontrolled, A1c 12.3 Family history of premature coronary artery disease Nicotine dependence Dyslipidemia -Continue aspirin, effient, and statin -Also started on metoprolol tartrate, switched to metoprolol succinate at the time of discharge, also on Aldactone (dose decreased today) and lisinopril -10 units of Levemir, Sliding scale insulin, also started on farxiga -Patient agreeable to starting insulin therapy at the time of discharge -Patient may also benefit from a LifeVest -Cardiology note reviewed, medications adjusted, likely discharge tomorrow DVT ppx: Subcu heparin Code status: Full code Anticipated discharge place: Home Anticipated discharge time: Likely tomorrow Objective - Vital Signs Vital signs: Vital Signs Temp 98.5 F 02/02/23 08:00 Pulse 107 H 02/02/23 09:00 Resp 12 02/02/23 09:00 BP 102/75 02/02/23 09:00 Pulse Ox 94 L 02/02/23 09:00 FiO2 Intake & Output 02/01/23 02/02/23 02/02/23 18:59 06:59 18:59 Intake Total 1410 Output Total 2300 500 0 Balance -890 -500 0 Weight 85.8 kg Intake: IV 30 Invasive Line 1 30 Oral 1380 Output: Urine 2300 500 0 Other: Voiding Method Urinal Urinal Urinal # Voids 1 - Labs CBC & Chem 7: 02/02/23 05:41 02/02/23 05:41 Labs: Abnormal Lab Results - Last 24 Hours (Table) 02/01/23 02/01/23 02/01/23 Range/Units 11:27 17:20 20:25 WBC (3.8-10.6) k/uL Sodium (137-145) mmol/L Creatinine (0.66-1.25) mg/dL Glucose (74-99) mg/dL POC Glucose (mg/dL) 179 H 336 H 112 H (70-110) mg/dL 02/02/23 02/02/23 02/02/23 Range/Units 05:41 05:41 06:50 WBC 11.1 H (3.8-10.6) k/uL Sodium 131 L (137-145) mmol/L Creatinine 0.57 L (0.66-1.25) mg/dL Glucose 151 H (74-99) mg/dL POC Glucose (mg/dL) 142 H (70-110) mg/dL
[2023-02-02 11:41] LABS: Glucose,Whole Blood 132 mg/dL (70-110)
[2023-02-02 16:18] LABS: Glucose,Whole Blood 163 mg/dL (70-110)
[2023-02-02 20:06] LABS: Glucose,Whole Blood 311 mg/dL (70-110)
[2023-02-02] MEDS: ATORVASTATIN 80 MG TAB PO SCH (20:17)
[2023-02-03] MEDS: HEPARIN SODIUM,PORCINE/PF 5,000 UNIT/0.5 ML SYRINGE SQ SCH ×4 (00:34→23:33)
[2023-02-03] MEDS: INSULIN ASPART (NovoLOG) 100 UNIT/ML VIAL SQ SCH ×4 (06:30→20:49)
[2023-02-03 06:31] LABS: Glucose,Whole Blood 141 mg/dL (70-110)
[2023-02-03] MEDS: INSULIN DETEMIR (LEVEMIR) 100 UNIT/ML SYR SQ SCH (06:32)
--- NOTE | 2023-02-03 07:26 | P.PN ---
Subjective Progress Note Date: 02/03/23 PROGRESS NOTE The patient is a 27-year-old male was transferred from [facility] with an abnormal EKG consistent with STEMI. Patient has a history of diabetes, chronic tobacco use, marijuana use and a strong family history of premature CAD with prior episodes of hypertension, he has not been followed by a physician on a regular basis and presented with symptoms of chest discomfort that started yesterday and got better then worse again today. On the EKG at [facility] he had ST segment elevation anteriorly with right bundle branch block and QRS pattern. The patient denies any prior history of cardiac disease. He continues to have some chest discomfort. He has no significant dyspnea, dizziness or palpitations. He denies any PND, orthopnea or peripheral edema. The patient is feeling well this morning, he underwent stenting of the LAD. He denies any chest discomfort, dizziness or palpitations. He denies any nausea or vomiting. He continues to be in sinus mechanism. There is no evidence of ventricular ectopic activity. His echocardiogram showed a severely impaired left ventricle systolic function. Medications: Aspirin, Lipitor 80 mg daily, insulin, lisinopril 2.5 mg once a day, Lopressor 25 g twice a day, Effient 10 mg daily, spironolactone 12.5 mg daily,Farxiga 10 mg daily PHYSICAL EXAMINATION: Blood pressure 100/65 heart rate 88 LUNGS: Clear to auscultation HEART: Regular rate and rhythm, S1, S2. No S3. No systolic murmur ABDOMEN: Soft, nontender, no organomegaly EXTREMETIES: No edema IMPRESSION: 1. Status post anterior wall myocardial infarction and stenting of the LAD 2. Severe ischemic cardiomyopathy 3. History of diabetes 4. History of smoking PLAN: 1. Continue present therapy 2. Increase physical activity 3. Obtain a limited echo today 4. If there is no improvement in the systolic function, obtain a LifeVest prior to discharge, discussed with the patient the plans and recommendations. Objective - Vital Signs Vital signs: Vital Signs Temp 98.2 F 02/03/23 04:00 Pulse 93 02/03/23 06:00 Resp 20 02/03/23 06:00 BP 100/65 02/03/23 04:00 Pulse Ox 95 02/03/23 04:00 FiO2 Intake & Output 02/02/23 02/03/23 02/03/23 18:59 06:59 18:59 Output Total 0 0 Balance 0 0 Weight 85.5 kg Output: Urine 0 0 Other: Voiding Method Urinal Toilet # Voids 1 1 - Labs CBC & Chem 7: 02/02/23 05:41 02/02/23 05:41 Labs: Abnormal Lab Results - Last 24 Hours (Table) 02/02/23 02/02/23 02/02/23 Range/Units 11:38 16:17 20:04 POC Glucose (mg/dL) 132 H 163 H 311 H (70-110) mg/dL 02/03/23 Range/Units 06:29 POC Glucose (mg/dL) 141 H (70-110) mg/dL
[2023-02-03] MEDS: PRASUGREL 10 MG TAB PO SCH (08:05)
[2023-02-03] MEDS: SPIRONOLACTONE 25 MG TAB PO SCH (08:05)
[2023-02-03] MEDS: METOPROLOL TARTRATE 25 MG TAB PO SCH ×2 (08:05→20:43)
[2023-02-03] MEDS: DAPAGLIFLOZIN PROPANEDIOL 5 MG TABLET PO SCH (08:05)
[2023-02-03] MEDS: ASPIRIN 81 MG PO SCH (08:06)
[2023-02-03 11:25] LABS: Glucose,Whole Blood 186 mg/dL (70-110)
--- NOTE | 2023-02-03 12:55 | CA ---
Transthoracic Echo Report Name: Gordy Wei Age: 27 Gender: M : 1995 Exam Date: 02/03/2023 09:55 Exam Location: [facility] Ht (in): 65 Wt (lb): 188 Ordering Physician: Jacqueline Borden MD ([id number]) Attending/Referring Phys: Remote Mortgage Underwriter Elias Leiva Procedure CPT: Indications: NM Cardiac Hx: Technical Quality: Good Contrast 1: Total Dose (mL): Contrast 2: Total Dose (mL): MEASUREMENTS (Male / Female) Normal Values 2D ECHO LV Diastolic Diameter PLAX 4.5 cm 4.2 - 5.9 / 3.9 - 5.3 cm LV Systolic Diameter PLAX 3.8 cm IVS Diastolic Thickness 1.2 cm 0.6 - 1.0 / 0.6 - 0.9 cm LVPW Diastolic Thickness 1.0 cm 0.6 - 1.0 / 0.6 - 0.9 cm LV Relative Wall Thickness 0.5 RV Internal Dim ED PLAX 2.7 cm LV Diastolic Volume MOD BP 76.7 cm??? 67 - 155 / 56 - 104 cm??? LV Systolic Volume MOD BP 61.5 cm??? 22 - 58 / 19 - 49 cm??? LV Ejection Fraction MOD BP 19.8 % >= 55 % LV Diastolic Volume MOD 4C 77.0 cm??? LV Systolic Volume MOD 4C 57.1 cm??? LV Ejection Fraction MOD 4C 25.8 % LV Diastolic Length 4C 8.0 cm LV Systolic Length 4C 7.1 cm LV Diastolic Volume MOD 2C 75.5 cm??? LV Systolic Volume MOD 2C 62.7 cm??? LV Ejection Fraction MOD 2C 17.0 % LV Diastolic Length 2C 7.8 cm LV Systolic Length 2C 7.7 cm LA Volume 44.1 cm??? 18 - 58 / 22 - 52 cm??? DOPPLER AV Peak Velocity 66.5 cm/s AV Peak Gradient 1.8 mmHg MV Peak Velocity 85.3 cm/s MV Peak Gradient 2.9 mmHg MV Mean Velocity 45.3 cm/s MV Mean Gradient 1.0 mmHg MV Velocity Time Integral 19.2 cm MR Peak Velocity 411.6 cm/s MR Peak Gradient 67.8 mmHg TR Peak Velocity 213.3 cm/s TR Peak Gradient 18.2 mmHg Right Ventricular Systolic Press 23.2 mmHg FINDINGS Left Ventricle Mildly increased septal wall thickness. Mildly increased left ventricular systolic volume. Severely decreased left ventricular ejection fraction. Left ventricular ejection fraction is estimated at 20-25% Right Ventricle Right Atrium Left Atrium Mitral Valve Aortic Valve Tricuspid Valve Pulmonic Valve Pericardium Aorta CONCLUSIONS Limited follow-up study from study of 01-31-23 Severe LV systolic dysfunction Moderate mitral regurgitation Previewed by: Dr. Ronnie Lambert MD (Electronically Signed) Final Date: 03 February 2023 12:54
[2023-02-03 16:40] LABS: Glucose,Whole Blood 166 mg/dL (70-110)
--- NOTE | 2023-02-03 17:55 | P.PN ---
Subjective Progress Note Date: 02/03/23 (delayed charting seen at 0905) Patient is a 27 yo male with type 2 diabetes mellitus currently on oral medications, tobacco abuse, and significant family history of premature coronary artery disease who presented as a transfer from [facility] to [facility] on EKG and complaints of chest pain. Patient was immediately taken to the animal laboratory technician and had an acutely occluded proximal LAD which was stented. He was transferred to the medical ICU. He underwent an echocardiogram which showed an ejection fraction 20-25%. Laboratory analysis revealed an A1c of 12. He was started on SGLT 2 inhibitor and long acting insulin. His blood sugars had greatly improved control. Cholesterol profile showed an LDL of 108, VLDL of 54.6, triglycerides of 270 with a total cholesterol of 201. Patient seen and examined at bedside. Denies any chest pain, shortness breath, nausea, vomiting. We are very adilene discussion about needing to get appropriate control of his diabetes. He had lots of appropriate questioning about A1c monitoring, Accu-Cheks, and need for follow-up. All questions answered. Vital signs reviewed General: nontoxic, no distress, appears at stated age Cardiovascular: S1S2 reg, no murmur, positive posterior tibial pulse bilateral, Lungs: CTA bilateral, no rhonchi, no rales , no accessory muscle use Abdominal: soft, nontender to palpation, no guarding, no appreciable organomegaly Ext: no gross muscle atrophy, no edema b/l lower extremities, no contractures Neuro: CN II-XI grossly intact, no focal neuro deficits Psych: Alert, oriented, appropriate affect Assessment/Plan: Acute anterior wall ST segment elevated myocardial infarction was status post stenting to the LAD Ischemic cardiomyopathy with ejection fraction 20-25% Poorly controlled diabetes mellitus type 2 with A1c 12.3 Tobacco dependency -Cardiology note reviewed and case discussed with cardiology PROTECTION OFFICER. Plans are for LifeVest, orders have been written -Continue with first again plan to discharge home withJardiance, continue with mollyemmateo and lisa will discharge with long acting pen - follow BS - ASA 81 mg, Lipitor 80 mg at night, lisinopril 2.5 mg daily, Lopressor 25 mg twice daily, Effient 10 mg daily, aldactone 12.5 mg daily -Follow on telemetry, pulse, blood pressure -Nicotine cessation -We will need outpatient cardiology follow-up. We'll plan to establish with a primary care physician. I've asked for him to obtain the name psych and ensure records are sent there. Imaging: Repeat echo EF 20-25% Data Review: Vitals reviewed computer 97.7, pulse 103, blood pressure 107/76, O2 sat 92% on room air Blood sugars reviewed and fasting 141, 1120 09/25/1985, 1430 02/25/1966 DVT prophylaxis: Heparin Anticipated discharge date: to home once life vest available This dictation was prepared using [employer] voice recognition software. Though every attempt is made to correct errors during dictation some may still exist. Objective - Vital Signs Vital signs: Vital Signs Temp 97.5 F L 02/03/23 15:12 Pulse 101 H 02/03/23 15:12 Resp 16 02/03/23 15:12 BP 97/64 02/03/23 15:12 Pulse Ox 95 02/03/23 15:12 FiO2 Intake & Output 02/02/23 02/03/23 02/03/23 18:59 06:59 18:59 Intake Total 1020 Output Total 0 0 800 Balance 0 0 220 Weight 85.5 kg Intake: Oral 1020 Output: Urine 0 0 800 Other: Voiding Method Urinal Toilet # Voids 1 1 - Labs CBC & Chem 7: 02/02/23 05:41 02/02/23 05:41 Labs: Abnormal Lab Results - Last 24 Hours (Table) 02/02/23 02/03/23 02/03/23 Range/Units 20:04 06:29 11:23 POC Glucose (mg/dL) 311 H 141 H 186 H (70-110) mg/dL 02/03/23 Range/Units 16:38 POC Glucose (mg/dL) 166 H (70-110) mg/dL
[2023-02-03] MEDS: ATORVASTATIN 80 MG TAB PO SCH (20:43)
[2023-02-03 20:44] LABS: Glucose,Whole Blood 325 mg/dL (70-110)
[2023-02-04 04:06] VITALS: RESP 20
[2023-02-04 05:56] LABS: African American GFR (CKD) >90 (>60 ml/min/1.73 sqM); Anion Gap 6 mmol/L; Blood Urea Nitrogen 15 mg/dL (9-20); Calcium 8.7 mg/dL (8.4-10.2); Carbon Dioxide 24 mmol/L (22-30); Chloride 102 mmol/L (98-107); Glucose 173 mg/dL (74-99); Non-African American GFR(CKD) >90 (>60 ml/min/1.73 sqM); Sodium 132 mmol/L (137-145)
[2023-02-04 06:27] LABS: Glucose,Whole Blood 193 mg/dL (70-110)
[2023-02-04] MEDS: INSULIN ASPART (NovoLOG) 100 UNIT/ML VIAL SQ SCH (06:44)
[2023-02-04] MEDS: INSULIN DETEMIR (LEVEMIR) 100 UNIT/ML SYR SQ SCH (06:44)
[2023-02-04] MEDS: DAPAGLIFLOZIN PROPANEDIOL 5 MG TABLET PO SCH (09:00)
[2023-02-04] MEDS: HEPARIN SODIUM,PORCINE/PF 5,000 UNIT/0.5 ML SYRINGE SQ SCH (09:00)
[2023-02-04] MEDS: METOPROLOL TARTRATE 25 MG TAB PO SCH (09:00)
[2023-02-04] MEDS: ASPIRIN 81 MG PO SCH (09:01)
[2023-02-04] MEDS: PRASUGREL 10 MG TAB PO SCH (09:01)
[2023-02-04] MEDS: SPIRONOLACTONE 25 MG TAB PO SCH (09:01)
[2023-02-04 09:10] VITALS: BP 104/74; PULSE 86; TEMP 98.4
--- NOTE | 2023-02-04 11:15 | P.PN ---
Subjective Progress Note Date: 02/04/23 PROGRESS NOTE The patient is a 27-year-old male was transferred from [facility] with an abnormal EKG consistent with STEMI. Patient has a history of diabetes, chronic tobacco use, marijuana use and a strong family history of premature CAD with prior episodes of hypertension, he has not been followed by a physician on a regular basis and presented with symptoms of chest discomfort that started yesterday and got better then worse again today. On the EKG at [facility] he had ST segment elevation anteriorly with right bundle branch block and QRS pattern. The patient denies any prior history of cardiac disease. He continues to have some chest discomfort. He has no significant dyspnea, dizziness or palpitations. He denies any PND, orthopnea or peripheral edema. The patient is feeling well this morning, he underwent stenting of the LAD. He denies any chest discomfort, dizziness or palpitations. He denies any nausea or vomiting. He continues to be in sinus mechanism. There is no evidence of ventricular ectopic activity. His echocardiogram showed a severely impaired left ventricle systolic function. February 04: He is feeling better today, he denies any chest discomfort, dizziness or palpitations. He denies any nausea or vomiting. He is ambulating without diff iculties and continues to be in sinus mechanism. He had a repeat echocardiogram done yesterday that showed severe impairment of the left ventricular systolic function. He has the LifeVest placed Medications: Aspirin, Lipitor 80 mg daily, insulin, lisinopril 2.5 mg once a day, Lopressor 25 g twice a day, Effient 10 mg daily, spironolactone 12.5 mg daily,Farxiga 10 mg daily PHYSICAL EXAMINATION: Blood pressure 104/70 heart rate 86 LUNGS: Clear to auscultation HEART: Regular rate and rhythm, S1, S2. No S3. No systolic murmur ABDOMEN: Soft, nontender, no organomegaly EXTREMETIES: No edema Lab: BUN 15, creatinine 0.6 IMPRESSION: 1. Status post anterior wall myocardial infarction and stenting of the LAD 2. Severe ischemic cardiomyopathy 3. History of diabetes 4. History of smoking PLAN: 1. Continue present therapy 2. Increase physical activity 3. Discharge home today 4. If there is no improvement in the systolic function, after repeat echocardiogram in 6 weeks then proceed with ICD implantation. Objective - Vital Signs Vital signs: Vital Signs Temp 98.4 F 02/04/23 07:47 Pulse 86 02/04/23 07:47 Resp 20 02/04/23 07:47 BP 104/74 02/04/23 07:47 Pulse Ox 95 02/04/23 07:47 FiO2 Intake & Output 02/03/23 02/04/23 02/04/23 18:59 06:59 18:59 Intake Total 1020 240 Output Total 1750 950 Balance -730 -950 240 Weight 87.3 kg Intake: Oral 1020 240 Output: Urine 1750 950 Other: Voiding Method Toilet # Voids 2 - Labs CBC & Chem 7: 02/02/23 05:41 02/04/23 05:01 Labs: Abnormal Lab Results - Last 24 Hours (Table) 02/03/23 02/03/23 02/03/23 Range/Units 11: 16:38 20:42 Sodium (137-145) mmol/L Creatinine (0.66-1.25) mg/dL Glucose (74-99) mg/dL POC Glucose (mg/dL) 186 H 166 H 325 H (70-110) mg/dL 02/04/23 02/04/23 Range/Units 05:01 06:26 Sodium 132 L (137-145) mmol/L Creatinine 0.60 L (0.66-1.25) mg/dL Glucose 173 H (74-99) mg/dL POC Glucose (mg/dL) 193 H (70-110) mg/dL
--- NOTE | 2023-02-04 18:53 | P.DS ---
Providers Date of admission: 01/30/23 23:46 Expected date of discharge: 02/04/23 Attending physician: Angelina Xiong MD Consults: 01/30/23 23:46 Consult Physician Stat Consulting Provider: Jacqueline Borden Consult Reason/Comments: stemi Do you want consulting provider notified?: Already Contacted 01/31/23 00:55 Consult Physician Routine Consulting Provider: [facility] Consult Reason/Comments: Post Interventional Patient Do you want consulting provider notified?: Already Contacted Primary care physician: Stated None Hospital Course: Discharge Diagnosis: Acute anterior wall ST segment elevated myocardial infarction was status post stenting to the LAD Ischemic cardiomyopathy with ejection fraction 20-25% Poorly controlled diabetes mellitus type 2 with A1c 12.3 Tobacco dependency Hospital Course: Patient is a 27 yo male with type 2 diabetes mellitus currently on oral medications, tobacco abuse, and significant family history of premature coronary artery disease who presented as a transfer from [facility] to [facility] on EKG and complaints of chest pain. Patient was immediately taken to the [facility] and had an acutely occluded proximal LAD which was stented. He was transferred to the medical ICU. He underwent an echocardiogram which showed an ejection fraction 20-25%. Laboratory analysis revealed an A1c of 12. He was started on SGLT 2 inhibitor and long acting insulin. His blood sugars had greatly improved control. Cholesterol profile showed an LDL of 108, VLDL of 54. 6, triglycerides of 270 with a total cholesterol of 201. He underwent repeat echo which confirmed ejection fraction of 20-25%. He was outfitted with a LifeVest. He was doing well and determined stable for discharge. Follow-up: Patient plans to establish with Dr. Beavers as this is his father's PCP- intake appointment scheduled on 02/14/23. He will see Dr. Robles on 02/12/23. Medications on discharge that are new are Aldactone, Effient, Lipitor, Lopressor, Zestril, We did try repeatedly to get long-acting insulin however was cost prohibitive. He'll be discharged home on ReliOn N 6 units in the morning and 4 units at night. He was given a glucometer and provided with orders for testing supplies. Patient seen and examined at bedside. He denies any chest pain, shortness breath, nausea, vomiting. We will over detailed instructions of what each individual medication is used for otherwise important to take these medications and how to check his blood sugars. Vital signs reviewed and stable. General: nontoxic, no distress, appears at stated age Cardiovascular: S1S2 reg, no murmur, positive posterior tibial pulse bilateral, Lungs: CTA bilateral, no rhonchi, no rales , no accessory muscle use Abdominal: soft, nontender to palpation, no guarding, no appreciable organomegaly Ext: no gross muscle atrophy, no edema b/l lower extremities, no contractures Neuro: CN II-XI grossly intact, no focal neuro deficits Psych: Alert, oriented, appropriate affect A total of 45 minutes of time were spent preparing this complex discharge summary. Patient was discharged on 02/04/23. This dictation was prepared using [employer] voice recognition software. Though every attempt is made to correct errors during dictation some may still exist. Patient Condition at Discharge: Fair Plan - Discharge Summary Discharge Rx Participant: No New Discharge Prescriptions: New Spironolactone [Aldactone] 12.5 mg PO DAILY #30 tab Prasugrel [Effient] 10 mg PO DAILY #30 tab Atorvastatin [Lipitor] 80 mg PO HS #30 tab Metoprolol Tartrate [Lopressor] 25 mg PO BID #60 tab lisinopriL [Zestril] 2.5 mg PO DAILY #30 tab Aspirin 81 mg PO DAILY #30 tab Empagliflozin [Jardiance] 10 mg PO DAILY #30 tablet Insulin NPH Human Isophane [Novolin N] See Rx Instructions .ROUTE .COMPLEX #5 pen Syringe-Needle,Insulin,0.5 ml [Insulin Syringe 30G 5/16" 1/2 ml] 1 syr SQ DIRECTED #60 each Discontinued metFORMIN HCL 1,000 mg PO BID Discharge Medication List Aspirin 81 mg PO DAILY #30 tab 02/04/23 [Rx] Atorvastatin [Lipitor] 80 mg PO HS #30 tab 02/04/23 [Rx] Empagliflozin [Jardiance] 10 mg PO DAILY #30 tablet 02/04/23 [Rx] Insulin NPH Human Isophane [Novolin N] See Rx Instructions .ROUTE .COMPLEX #5 pen 02/04/23 [Rx] Metoprolol Tartrate [Lopressor] 25 mg PO BID #60 tab 02/04/23 [Rx] Prasugrel [Effient] 10 mg PO DAILY #30 tab 02/04/23 [Rx] Spironolactone [Aldactone] 12.5 mg PO DAILY #30 tab 02/04/23 [Rx] Syringe-Needle,Insulin,0.5 ml [Insulin Syringe 30G 5/16" 1/2 ml] 1 syr SQ DIRECTED #60 each 02/04/23 [Rx] lisinopriL [Zestril] 2.5 mg PO DAILY #30 tab 02/04/23 [Rx] Follow up Appointment(s)/Referral(s): Tamia Beavers MD [STAFF PHYSICIAN] - 02/14/23 10:30 am Adiel Robles MD [STAFF PHYSICIAN] - 02/12/23 3:15 pm Patient Instructions/Handouts: *Surgery [facility] - After Heart Catheterization - Chemical Dependency Nurse Instructions, Heart Attack (DC), Heart Failure (DC), Coronary Artery Disease (DC), Heart Healthy Diet (ED), Seasoning Without Salt (DC), How to Take a Blood Pressure (ED), What is Insulin (ED), How to Give an Insulin Injection (ED), Insulin Pens (ED), Low-Sodium Diet (ED), After Radial Heart Catheterization (GEN), Mediterranean Diet (DC), What to Do if Your Blood Sugar is Low (ED) Activity/Diet/Wound Care/Special Instructions: Activity: As tolerated No strenuous physical Activity Diet: Heart Healthy, carb consistent Special Instructions: Take your ReliOn N 6 units before breakfast and 4 units before dinner Check Blood sugar before breakfast and before dinner Make list of your blood sugars (can use an Mandeep) Ask for the ReliOn Brand at [facility] for your Insulin Thank you for trusting us with your care. We wish you well on your journey to better health. Discharge Disposition: HOME SELF-CARE
--- NOTE | 2023-02-06 07:08 | CDI ---
Documentation Clarification Form Date: 02/06/23 From: Renea Nolan Admit Date: 01/30/2023 11:46:00 PM Patient Name: Gordy Wei Visit Number: [id number] Discharge Date: 02/04/2023 11:57:00 AM ATTENTION: The Clinical Documentation Specialists (CDI) and [facility] Coding Staff appreciate your assistance in clarifying documentation. Please respond to the clarification below the line at the bottom and electronically sign. The CDI & [facility] Coding staff will review the response and follow-up if needed. Please note: Queries are made part of the Legal Health Record. If you have any questions, please contact the author of this message via ITS. Dr. Gaby Darling, Your patient has the documented diagnosis of systolic CHF per addendum to H&P. Additional information regarding the acuity of systolic CHF is requested. History/Risk Factors: T2DM, smoker Clinical Indicators: Experiencing intermittent substernalchest discomfortalong withshortness of breathover the past 36 hours. She reports significantfamily historyof heart diseasewith his father and mother both suffering MIs at young ages. VS/Pulse OX: T 98.8, P 99, R 31/8, BP 122/93, O2 Sat 94/92 BNP: none Echocardiogram Results: Left ventricular ejection fraction is estimated at 20-25 %.Left ventricular cavitysize normal. Global left ventricular hypokinesis. Mildly increased left ventricular systolic volume. Severely decreased left ventricular ejection fraction. Chest X Ray: none Treatment: IV Furosemide 20 mg x 1 on 02/01, Aldactone, In your professional opinion, can you please clarify the acuity of systolic CHF if known? [ ] Acute Systolic Heart Failure (reduced EF) [ ] Chronic Systolic Heart Failure (reduced EF) [ ] Acute on Chronic Systolic Heart Failure (reduced EF) [X ] Other, please specify [ ] Unable to determine No acute or chronic, Ischemic cardiomyopathy MTDD
== END 2023-02-04 11:57 | disposition home or self-care (01) | DRG 247 ==
LOC: EC 23:32 → 2SICU 23:46
PROVIDERS: ADMIT Internal Medicine; ATTEND Internal Medicine
PROC: 027034Z Dilation of Coronary Artery, One Artery with Drug-eluting Intraluminal Device, Percutaneous Approach (ICD-10-PCS; principal; 2023-01-31)
PROC: B2111ZZ Fluoroscopy of Multiple Coronary Arteries using Low Osmolar Contrast (ICD-10-PCS; principal; 2023-01-31)
PROC: B240ZZ3 Ultrasonography of Single Coronary Artery, Intravascular (ICD-10-PCS; principal; 2023-01-31)
PROC: 4A023N7 Measurement of Cardiac Sampling and Pressure, Left Heart, Percutaneous Approach (ICD-10-PCS; principal; 2023-01-31)
DX: I21.09 ST elevation (STEMI) myocardial infarction involving other coronary artery of anterior wall (principal); E11.65 Type 2 diabetes mellitus with hyperglycemia; I25.5 Ischemic cardiomyopathy; I25.119 Atherosclerotic heart disease of native coronary artery with unspecified angina pectoris; Z28.310 Unvaccinated for COVID-19; I10 Essential (primary) hypertension; E78.5 Hyperlipidemia, unspecified; I45.10 Unspecified right bundle-branch block; F17.200 Nicotine dependence, unspecified, uncomplicated; Z71.6 Tobacco abuse counseling; Z79.84 Long term (current) use of oral hypoglycemic drugs; Z82.49 Family history of ischemic heart disease and other diseases of the circulatory system; Z88.0 Allergy status to penicillin; Z91.013 Allergy to seafood
CPT/HCPCS: 80048; 80061; 83036; 83735; 84484; 85025; 92941; 92978; 93306; 93458; 99285